=== PATIENT | male | born 1995 | race African-American/Black ===

== ENCOUNTER 2020-04-11 16:15 | Emergency (ER) | payer OTHER, MEDICAID ==
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
[2020-04-12 02:14] VITALS: BP 117/56
== END 2020-04-11 20:05 | disposition home or self-care (01) ==
LOC: ER 16:15
DX: M54.9 Dorsalgia, unspecified (principal); M54.5 Low back pain; V43.52XA Car driver injured in collision with other type car in traffic accident, initial encounter
CPT/HCPCS: 71046; 72070; 72110; 99283